=== PATIENT | male | born 1950 | race Caucasian/White ===

== ENCOUNTER 2024-03-26 12:52 | Outpatient (AMB) | payer OTHER, SELFPAY ==
--- NOTE | 2024-03-26 13:00 | HO.SPINEOV ---
Vital Signs 03/26/24 13:04 Height 5 ft 8 in Weight 175 lb BMI 26.6 Intake Visit Reasons: recurrent lumbar radiculopathy/hx spinal stenosis Intake Note: Mr. Resendez is here today c/o low back ,Hip and leg pain. Special Projects Coordinator Required: No Allergies Penicillins Allergy (Mild, Verified 03/26/24 13:07) Swelling Sulfa (Sulfonamide Antibiotics) Allergy (Mild, Verified 03/26/24 13:07) Unknown bee stings Allergy (Mild, Uncoded 03/26/24 13:07) Swelling Physical Exam Vital Signs: BMI result Body Mass Index 26.6 Assessment & Plan Assessment & Plan (1) Lumbar stenosis: Code(s): M48.061 - Spinal stenosis, lumbar region without neurogenic claudication Category: Medical Plan Mr Resendez is a 73-year-old gentleman who is a previous patient of Dr. Saenz from [facility] and from [facility]. He has had [address] Saenz, the last surgery being T11-12, T10-11 and left L4-5 decompression done in 2019. He has always had excellent results from the surgeries and came to see us about a right leg pain that he has had going on now since June of this year. It started slowly but has steadily gotten worse. It wraps around from his low back to the front of his thigh going down to his knee and extending just medial below the knee into the tibial region. At times it can be manageable and he will not notice it all that much, but at other times it can be unrelenting and affect his quality of life to where he will have to limit activities. He is very active gentleman, and has noticed a decrease ability to put weight on his leg and at times it will feel like his legs going to come out from underneath him when he is doing activities. There is tingling that goes down the front of the side of the knee as well. He has tried gabapentin and ibuprofen but they really were not all that helpful so he stopped them. He has been actively going to physical therapy now for about 6 or more months. These things do seem that keep the symptoms at [place] at times but other times he is not really sure if they are helping much. He had an MRI done in February of this year showing stenosis at L3-4 moderate to severe and came in to see us for an evaluation. He does note that he is getting a little bit of the symptoms on the left as well. PMH: As mentioned he has had 5 previous back surgeries, knee arthroscopy, BPH, depression. Denies any problems with his heart, lung, liver, kidneys, intestines, bleeding disorders, blood clots, cancer. Social hx: He does not smoke, drink or use any recreational drugs Medications: Alfuzosin, tadalafil, bupropion Allergies: Penicillin and sulfa drugs Physical exam: Awake alert oriented no acute distress, he has multiple well-healed incision along his thoracolumbar region and into his lower lumbar region. Strength is full, slightly brisk reflexes in the patella, no clonus. Imaging review: He has lumbar MRI done at [facility] in February of this year showing multilevel degenerative disc disease with severe disc collapse at multiple levels. He has evidence of cord signal change at about the T11-12 area, there are postsurgical changes, no residual compression seen. He has mild to moderate stenosis at L1-2, there might be some subtle lateral recess narrowing at L2-3 on the right but the most pertinent finding is moderate to severe stenosis at L3-4. Impression: 73-year-old gentleman well known to Dr. Saenz from 5 previous surgeries, the last in 2019 where he had a thoracic myelopathy as well as a lumbar radiculopathy in both of these were treated with surgery at the T11-12 and L4-5 levels. He was very successful with the surgery in was in great shape until June this year when he started to notice right anterior thigh pain going to his knee associated with tingling and numbness. He starting to get a little bit of it on the left as well. At times it can be claudicating but at other times it is very manageable. It is getting to the point now though where it starting to have more bad days than good days in his leg will feel like it is going to give out from underneath him when he is doing activities. He knows feeling of nerve pain in his very familiar with the sensation and that is exactly what it feels like. His MRI shows severe stenosis at L3-4 amongst other degenerative changes. Typically this is something Dr. Saenz would treat with a simple decompression, usually a unilateral approach for bilateral decompression, in this instance we would go on the right side as that is his most symptomatic. The patient is very familiar with these surgeries and is interested in moving forward. I told him I would review all the films with Dr. Saenz to establish final plan but that I would go ahead and put him on the books for surgery and if anything changes, I will call him and update him. Pt was given risk and benefits of surgery including but not limited to infection, hematoma , nerve injury,durotomy, weakness,bowel/bladder injury, persistent pain, [] as well as the option to continue with conservative treatment and patient wishes to proceed with surgery. Pt is aware they should stop their motrin, aspirin 7 days prior to surgery. All questions were answered to the best of our ability. If there is anything about this patients medical history that we have overlooked or concerns you have about us proceeding with surgery we would appreciate any input you can offer. Thank you for allowing us to care for your patient. The total time spent with this visit with this patient was 45 minutes reviewing history, physical exam, lumbar imaging review, and implementation of treatment plan or further diagnostic testing Jeremy Saenz MD,PhD [facility] Coding Level of Care Code New Pt Level 4 (74118) Diagnoses Lumbar stenosis M48.061
[2024-03-26 13:04] VITALS: BMI 26.6
== END 2024-03-26 14:11 | disposition home or self-care (01) ==
PROVIDERS: PCP Family Medicine; Visit Provider Physician Assistant
DX: M48.061 Spinal stenosis, lumbar region without neurogenic claudication (principal)
CPT/HCPCS: 99204

== ENCOUNTER 2024-05-31 11:26 | Day surgery (SDC) | payer OTHER, SELFPAY ==
[2024-05-18 10:57] VITALS: BMI 26.9
[2024-05-31] VITALS (10 sets, daily range): BP systolic 127–152; BP diastolic 74–92; PULSE 77–87; RESP 16–20; TEMP 36.2–37.1; O2SAT 92–97; BMI 25.4
--- NOTE | ~2024-05-31 | FL_ITS ---
EXAMINATION: FL GUIDANCE ONLY HISTORY: bilateral l3-4 lumbar decompression COMPARISON: None available. TECHNIQUE: Fluoroscopy time: Less than 1 minute. Cumulative Dose: 4.39 mGy. DAP: 0.918 mGym2 Images: 2. FINDINGS: Fluoroscopic spot films of the lumbar spine in the lateral projection demonstrate probes directed toward the L2-3 and L3-4 intervertebral disc spaces from posterior approaches. FL/FL guidance in OR IMPRESSION: Fluoroscopy during procedure. Please see procedure report for additional information. Electronically signed by: Octaviano Vazquez MD 06/04/2024 08:28 AM EDT
[2024-05-31] MEDS: methocarbamoL 750 MG TABLET PO (11:55)
[2024-05-31] MEDS: Gabapentin 300 MG CAPSULE PO (11:55)
[2024-05-31] MEDS: Lactated Ringers 1,000 ML 100 ML IVCONT (12:07)
[2024-05-31] MEDS: vancomycin HCL 1,000 MG in 0.9 % Sodium Chloride 250 ML 270 MG IV (12:22)
--- NOTE | 2024-05-31 12:26 | P.HPSUR_ITS ---
Pre-Procedural Eval Section A - 24 Hr Update-Section A only Date of Service: 05/31/24 The patient is an INPATIENT: No Section B - Complete if H&P > 30 days Chief Complaint: Spinal stenosis, lumbar region without neurogenic Details of Present Illness: Right lumbar radiculopathy Allergies: Allergies Allergy/AdvReac Type Severity Reaction Status Date / Time bee pollen [bee stings] Allergy Intermediate Swelling/it Verified 05/31/24 12:16 apryl Penicillins Allergy Intermediate Swelling/it Verified 05/31/24 12:16 apryl Sulfa (Sulfonamide Allergy Intermediate Swelling/it Verified 05/31/24 12:16 Antibiotics) apryl Review of Systems Sugical H&P ROS: Negative: Constitution, Cardiovascular, Respiratory, Neurologic al, Psychiatric, Hem-Onc, Allergic/Immunologic, Gastrointestinal, Genitourinary, Musculoskeletal, Integumentary, Endocrine and Eyes/Ears/Nose/Throat Exam Surgical H&P Exam: Normal: HEENT, Normal: Heart, Normal: Lungs, Normal: Extremities, Normal: Abdomen, Normal: Skin and Normal: Neurological (Awake, alert) Plan Diagnosis/Plan: Unchanged I have reviewed the history and physical and performed a pertinent physical examination on my patient. No changes have occurred unless specified. right L2-3 decompression, right-sided approach for bilateral L3-4 decompression. Time Spent With Patient Time: Total time managing care of this patient today __5__ minutes.
--- NOTE | 2024-05-31 12:31 | PC.NURSE ---
dr braswell aware pt took asa and ibuprofen on okay to proceed with surgery
--- NOTE | 2024-05-31 12:41 | P.CONAN_ITS ---
Documented by User: Mari Silva NP 05/30/24 12:47 HPI - Anesthesia Eval Consult details Narrative: 73yo M for Bilateral L3-4 Right approach for Lumbar Decompression PMFSH Active Problems Active Problems: All Active Problems Lumbar stenosis (Acute) Past Medical History Medical History Heartburn Squamous cell skin cancer History of Mohs micrographic surgery for skin cancer Lumbar spinal stenosis Lumbar radiculopathy BPH (benign prostatic hyperplasia) Depression Surgical History Surgical History Hx of cataract extraction H/O colonoscopy Hx of arthroscopic knee surgery History of back surgery Social History Social History Do you presently have visiting nurse or other home services: No Comment: advised of trip hazard Patient Tobacco Use Status: Never used Tobacco Use of substances other than those prescribed or required for medical reasons: No Have you been hit, kicked, punched, or otherwise hurt by someone within the past year? If so, by whom?: No Spiritual Healthcare Practices: none [facility] Practices: [employer] Cultural Healthcare Practices: none Are you DNR?: No Advance Directives Information Provided: Yes (as above noted) Advance Directives on File: No Recently lost weight without trying: No Eating poorly because of decreased appetite: No Nutrition Risks: Surgical patient >75years Poor oral hygiene: No Meds Allergies Allergy/AdvReac Type Severity Reaction Status Date / Time bee pollen [bee stings] Allergy Intermediate Swelling/it Verified 05/31/24 12:16 apryl Penicillins Allergy Intermediate Swelling/it Verified 05/31/24 12:16 apryl Sulfa (Sulfonamide Allergy Intermediate Swelling/it Verified 05/31/24 12:16 Antibiotics) apryl Home Medications ?Medication ?Instructions ?Recorded ?Confirmed ?Last Taken ?Type alfuzosin 10 mg tablet,extended 10 mg PO QAM 05/17/24 05/18/24 Unknown History release 24 hr bupropion HCl 150 mg 24 hr tablet, 150 mg PO QAM 05/17/24 05/18/24 Unknown History extended release epinephrine 0.3 mg/0.3 mL 0.3 mg IM ONCE PRN Anaphylaxis 05/17/24 05/17/24 Unknown History injection, auto-injector hydrocortisone acetate 25 mg 25 mg OR BID 05/17/24 05/17/24 Unknown History rectal suppository lorazepam 0.5 mg tablet 1 mg PO BEDTIME PRN Anxiety 05/17/24 05/17/24 Unknown History metronidazole 0.75 % topical gel 1 appl topical BID 05/17/24 05/17/24 Unknown History tadalafil 5 mg tablet 5 mg PO QAM 05/17/24 05/18/24 Unknown History tamsulosin 0.4 mg capsule 0.8 mg PO DAILY 05/17/24 05/17/24 Unknown History aspirin 81 mg tablet,delayed 81 mg PO DAILY 05/29/24 05/29/24 05/29/24 History release Exam Height,Weight and Vital Signs: Height 5 ft 8 in Weight 80.286 kg Assessment and Plan Assessment Anesthesia Assessment: Chart Reviewed Documented by User: Jenniffer Urrutia DO 05/31/24 12:43 HPI - Anesthesia Eval Consult details Narrative: 73yo M for Bilateral L3-4 Right approach for Lumbar Decompression Patient has been told by anesthesiologists in the past that he has a very narrow throat. [facility] Past Medical History Medical History Heartburn Squamous cell skin cancer History of Mohs micrographic surgery for skin cancer Lumbar spinal stenosis Lumbar radiculopathy BPH (benign prostatic hyperplasia) Depression Family History Family history of problems with anesthesia: No Surgical History Surgical History Hx of cataract extraction H/O colonoscopy Hx of arthroscopic knee surgery History of back surgery History of Problems with Anesthesia: No Social History Social History Do you presently have visiting nurse or other home services: No Comment: advised of trip hazard Patient Tobacco Use Status: Never used Tobacco Use of substances other than those prescribed or required for medical reasons: No Have you been hit, kicked, punched, or otherwise hurt by someone within the past year? If so, by whom?: No Spiritual Healthcare Practices: none [facility] Practices: [employer] Cultural Healthcare Practices: none Are you DNR?: No Advance Directives Information Provided: Yes (as above noted) Advance Directives on File: No Recently lost weight without trying: No Eating poorly because of decreased appetite: No Nutrition Risks: Surgical patient >75years Poor oral hygiene: No Meds Allergies Allergy/AdvReac Type Severity Reaction Status Date / Time bee pollen [bee stings] Allergy Intermediate Swelling/it Verified 05/31/24 12:16 apryl Penicillins Allergy Intermediate Swelling/it Verified 05/31/24 12:16 apryl Sulfa (Sulfonamide Allergy Intermediate Swelling/it Verified 05/31/24 12:16 Antibiotics) apryl Home Medications ?Medication ?Instructions ?Recorded ?Confirmed ?Last Taken ?Type alfuzosin 10 mg tablet,extended 10 mg PO QAM 05/17/24 05/18/24 Unknown History release 24 hr bupropion HCl 150 mg 24 hr tablet, 150 mg PO QAM 05/17/24 05/18/24 Unknown History extended release epinephrine 0.3 mg/0.3 mL 0.3 mg IM ONCE PRN Anaphylaxis 05/17/24 05/17/24 Unknown History injection, auto-injector hydrocortisone acetate 25 mg 25 mg OR BID 05/17/24 05/17/24 Unknown History rectal suppository lorazepam 0.5 mg tablet 1 mg PO BEDTIME PRN Anxiety 05/17/24 05/17/24 Unknown Hi story metronidazole 0.75 % topical gel 1 appl topical BID 05/17/24 05/17/24 Unknown History tadalafil 5 mg tablet 5 mg PO QAM 05/17/24 05/18/24 Unknown History tamsulosin 0.4 mg capsule 0.8 mg PO DAILY 05/17/24 05/17/24 Unknown History aspirin 81 mg tablet,delayed 81 mg PO DAILY 05/29/24 05/29/24 05/29/24 History release Exam Exam Date and Time: 05/31/24 1242 Height,Weight and Vital Signs: Height 5 ft 8 in Weight 80.286 kg Vital Signs Temperature 98.7 F 05/31/24 12:08 Pulse Rate 77 05/31/24 12:08 Respiratory Rate 16 05/31/24 12:08 Blood Pressure 132/82 05/31/24 12:08 Pulse Oximetry 94 05/31/24 12:08 Oxygen Delivery Method Room Air 05/31/24 12:08 Temperature 98.7 F 05/31/24 12:08 Pulse Rate 77 05/31/24 12:08 Respiratory Rate 16 05/31/24 12:08 Blood Pressure 132/82 05/31/24 12:08 Pulse Oximetry 94 05/31/24 12:08 Oxygen Delivery Method Room Air 05/31/24 12:08 Airway Mallampati Class: II TM Dist: >3cm Neck ROM: Full Loose/Missing/Broken Teeth: No (patient denies any loose or broken teeth) Heart: S1S2 Lungs: CTAB Assessment and Plan Assessment Anesthesia Assessment: Anesthesia Plan Discussed and Chart Reviewed Final Anesthetic Review Family History of Problems with Anesthesia: No History of Problems with Anesthesia: No NPO: Yes ASA Class: II Final Preanesthetic Review: No Changes in Pt Med Stat, Meds/Allgs Chart Reviewed, Consent Obtained/Reviewed and Anes Risks/Benef Reviewed Patient Risk: Low Procedure Risk: Low Anesthetic Plan Anesthetic Plan: GA and Agree w/ Assess. and Plan Disposition: Standard PACU
--- NOTE | 2024-05-31 15:39 | W.PM.OPN ---
Operative Note Operative Note Date of Service: 05/31/24 Narrative: Preoperative Diagnosis: L2-3 and L3-4 spinal stenosis/lateral recess stenosis/neural foraminal stenosis Operation: Right L2-3 dana Laminotomy, bilateral L3-4 laminotomy, partial facetectomy and foraminotomy with use of microscope Consent Informed Consent was obtained for this operation. I have explained the nature, purpose and benefits of the operation. I have discussed the risks and benefit of the operation including possible complications or adverse events with patient/family. Alternative(s) were discussed with the patient with their relative benefits and risks as well as the consequences of not accepting the operation were included in obtaining consent. Surgeon: ELAINA ALICIA MD, PHD Procedure Assisted By: Adrian Melendez Description of Procedure This patient is suffering from neurogenic claudication. MRI shows severe spinal stenosis L3-4 and moderate right L2-3 lateral recess stenosis. Based on his clinical symptoms I offered decompression of those levels The procedure and complications were explained. The patient was consented. The patient was brought to the operating room and endotracheally intubated. The patient was turned in prone position on the Mark frame. Prep and drape was done followed by timeout. The Physician hotel administrative assistant provided access. A mid lumbar incision was made followed by release of the paravertebral muscle on the right side to expose the L2-L4 laminae and facet joints. An intraoperative x-ray was obtained to confirm the correct level. The microscope was brought in. I took over the procedure. The high-speed drill was used to do a right L2-3 laminotomy until flavum ligament was reached. A #2 Kerrison was used to expand the laminotomy near flush to the pedicles and to include a partial facetectomy. The flavum ligament was opened and resected with a #3 Kerrison to decompress the underlying thecal sac. The flavum ligament was removed to decompress the lateral recess and the exiting L3 nerve root. A long nerve hook could be easily passed along the medial side of the pedicle as a sign of adequate decompression. Then I turned my attention to the L3-4 interspace. A right L3-4 hemilaminotomy was done, including a partial facetectomy. A flavum ligament was opened and resected with a 2. And 3 Kerrison. The L4 nerve root was identified and decompressed in the lateral recess. Then the spinous process was undercut and the patient was turned contralaterally. His flavum ligament was resected contralaterally to decompress the contralateral side, including the nerve root in the lateral recess. The microscope was removed. Hemostasis was done. The physician hotel administrative assistant close the Incision in 2 layers. Steri-Strips were used to approximate incision. An OpSite with Tegaderm was used to cover the incision. All sponge needle counts were correct. Patient was extubated and transported in stable is to recovery room. Anesthesia: General Estimated Blood Loss (ml): 30 Complications: None Duration of Surgery: 70 Minutes Postoperative Plan: Discharge to home
--- NOTE | 2024-05-31 15:43 | P.DS_ITS ---
DS: Providers Provider Date of Service: 05/31/24 Date of discharge: 05/31/24 Primary care physician: Unknown Physician DS: Summary Time Attestation Discharge Coordination Time (in mins): 13 Quality: Safe Use of Opioids Does Pt have an Active Cancer Diagnosis on the Problem List?: No Quality: Stroke Does the patient have a stroke diagnosis?: No Physical Exam Vital Signs: Vital Signs: Last Vital Signs Temp 98.7 F 05/31/24 12:08 Pulse 77 05/31/24 12:08 Resp 16 05/31/24 12:08 BP 132/82 05/31/24 12:08 Pulse Ox 94 05/31/24 12:08 O2 Del Method Room Air 05/31/24 12:08 BMI result Body Mass Index 25.4 Discharge Plan Discharge Patient Disposition: Home, Self-Care Referrals: Physician,Unknown J [Primary Care Provider] - 1 Week Discharge Medications: New oxycodone 5 mg tablet 5 mg PO Q6H PRN (Reason: pain) Qty: 30 0RF Rx Instructions: Partial Fill upon patient request. Continued hydrocortisone acetate 25 mg suppository 25 mg KS BID lorazepam 0.5 mg tablet 1 mg PO BEDTIME PRN (Reason: Anxiety) tamsulosin 0.4 mg capsule 0.8 mg PO DAILY epinephrine 0.3 mg/0.3 mL auto-injector 0.3 mg IM ONCE PRN (Reason: Anaphylaxis) metronidazole 0.75 % gel 1 appl topical BID bupropion HCl 150 mg tablet extended release 24 hr 150 mg PO QAM alfuzosin 10 mg tablet extended release 24 hr 10 mg PO QAM tadalafil 5 mg tablet 5 mg PO QAM Held aspirin 81 mg Tablet,Delayed Release (Dr/Ec) 81 mg PO DAILY Hold Instructions: Resume on 06/04/24. Discharge Orders: Discharge Order (Routine); Ordered 05/31/24 Ordered By: Adrain Leigh Diet: Advance to usual diet Activity on Discharge: As tolerated Activity Restrictions/Additional Instructions: After your spinal surgery we ask you to observe the following restri ctions/guidelines: Activity: It is normal to feel some discomfort as you increase your activity, but that will improve with time. We ask you avoid heavy lifting or acitivities that cause pain. As a general rule, 8lbs is a safe limit for lifting right after surgery. Walk as much as you feel comfortable but not to exhaustion. You will feel extra tired the first few days after surgery. Stay well hydrated. It is OK to walk up and down stairs You may return to driving when you are off narcotics (such as vicodin, oxycodone, dilaudid, etc), and you are back to normal functional capacity. If you have any concerns please check with office before driving. Return to work is specific to each patient and each surgery, so please speak with your doctor/PA at first follow up. Please bring paperwork such as FMLA at that time if you need it filled out. Medications: Please hold your aspirin for 3 days after surgery. We recommend you take 1,000mg Tylenol every 8 hours for the first few weeks after surgery, if you do not have any liver issues and can tolerate this medication. Do not exceed 4,000mg daily. We will give you a short supply of narcotics after surgery (usually one weeks worth). If you need more please call the office but do not use more than prescribed. You will need to give our office 48 hours notice if you need narcotics refilled and we do not fill narcotics on weekends or evenings. If you are on a narcotic, it is a good idea to take a stool softener such as colace or senna to avoid constipation If you take blood thinner such as aspirin, Plavix, Coumadin, Effient, Eliquis etc for conditions such as Afib, DVT, Pulmonary embolus, coronary disease, stents etc please speak with your surgeon about specific details as to when you can resume these medications. You can resume NSAIDs on post op day 1 (eg: Motrin, Naproxen, etc). Follow up: Please call the office, , after surgery to arrange a 3 week follow up for wound check. Wound Care: You may remove your dressing on the first day after surgery. ?You may ?leave open to air. Please do not remove the steri strips underneath. they will fall off on their own in one week. IT IS NORMAL FOR THE WOUND TO OOZE OR BE BLOODY FOR A FEW DAYS AFTER SURGERY. ?IF THIS HAPPENS JUST PLACE NEW DRESSING OVER IT TO AVOID STAINING CLOTHES. You may shower on post op day # 1 We ask that you do not let the water soak the wound. If it does get wet, just towel dry lightly. Please do not scrub your incision or place any type of chemical/ointment on the wound. No tub baths, pools or jacuzzis for one month. If you have any leaking or redness from your wound, or fevers, please call the office. Print Language: Latvian
[2024-05-31] MEDS: Haloperidol Lactate 5 MG/ML VIAL IVPUSH (16:05)
== END 2024-05-31 17:50 | disposition home or self-care (01) ==
PROVIDERS: Visit Provider Neurological Surgery
PROC: (CPT 63047; principal; 2024-05-31 14:00)
DX: M48.061 Spinal stenosis, lumbar region without neurogenic claudication (principal); Z79.899 Other long term (current) drug therapy; R20.0 Anesthesia of skin; R20.2 Paresthesia of skin; N40.0 Benign prostatic hyperplasia without lower urinary tract symptoms; F32.A Depression, unspecified; Z98.890 Other specified postprocedural states; Z88.0 Allergy status to penicillin; Z88.2 Allergy status to sulfonamides; M51.16 Intervertebral disc disorders with radiculopathy, lumbar region
CPT/HCPCS: 63047; 63048; J0131; J1100; J1630; J2003; J2405; J2704; J3010; J3370

== ENCOUNTER → 2024-05-31 11:26 | Outpatient (BNV) | payer OTHER, SELFPAY | PROVIDERS: Visit Provider Neurological Surgery | DX: M48.062 Spinal stenosis, lumbar region with neurogenic claudication (principal) | CPT/HCPCS: 63047; 63048; 99499 ==

== ENCOUNTER 2024-06-21 11:18 | Outpatient (AMB) | payer OTHER, SELFPAY ==
--- NOTE | 2024-06-21 11:27 | HO.SPINEOV ---
Intake Visit Reasons: 1st post op Intake Note: Mr. Resendez is here today for his 1st post op. 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 Gino is a pleasant 73 year old male who underwent lumbar decompression by Dr. Saenz on 05/31/24. To recap he was initially evaluated in clinic for R leg pain. He reports having a fairly difficult postoperative course where he was in quite a bit of pain, including shooting pains down his right lower extremity. Thankfully this has subsided in severity. He still has some residual pains in his right lower extremity, but states it is much better than it was prior to surgery. He asked several questions regarding the postoperative healing course, all of which I answered to the best of my ability. He was able to complete the regular activities of daily living around his home, and is completing stairs without much issue. He is no longer taking the oxycodone medication No new neurological deficits. The patient ambulates well and rises from a seated position without difficulty. His posterior incision site is closed, and scabbed over. He does still have quite a bit of swelling around the actual incision itself, but is nontender to touch, and nonerythematous. There is no drainage. I would like Gino to follow up with us again in 6 weeks to evaluate him at his 2nd postop visit. Adrian Saenz MD,PhD [facility] Coding Level of Care Code Global (46315) Diagnoses Status post lumbar spine surgery for decompression of spinal cord Z98.890
== END 2024-06-21 11:37 | disposition home or self-care (01) ==
LOC: HO.HNS 11:18
PROVIDERS: PCP Family Medicine; Visit Provider Physician Assistant
DX: Z98.890 Other specified postprocedural states (principal)
CPT/HCPCS: 99024

== ENCOUNTER 2024-08-03 13:34 | Outpatient (AMB) | payer OTHER, SELFPAY ==
--- OUTSIDE RECORDS SUMMARY | 2024-08-03 13:38 | XMS_ITS | Data Portability ---
Author Organization [place] - [facility], Allergy Address [address] [place] [address] Care Team Providers Care Dispatcher [place] Name Role Phone PASCUAL FRY Referring Provider [phone] JULIO CESAR CHRISTINE Primary Care Provider [phone] Assessment No assessment recorded. Plan of Treatment Reminders Order Date Submit Date Provider Last Modified By Organization Details Last Modified Time Details Appointments None record ed. Lab None record ed. Referral None record ed. Procedures None record ed. Surgeries None record ed. Imaging None record ed. Medication Orders None record ed. Patient TargetsNo targets recorded. Patient InstructionsNo instructions recorded. Reason for Referral None Reported. Results Created Date Observation Date Name Description Value Unit Range Abnormal Flag Note LastModifiedBy Organization Detail LastModifiedTime 07/07/19 25 audio gram No observ ation record ed. BARCODE Not Available 2024 16:00:54 Result Notes None recorded. Problems Name Problem SNOMED Code Status Onset Date Resolution Date Notes Provider Name and Address Organization Details Recorded Time Sensorine ural hearing loss of bilateral ears 405907055 Active 2018 Sensorine ural hearing loss, bilateral ; Note: Date Diagnosed : 06/09/2018 12:03 PM (H90.3) Not Available [facility] 4 02:17:24 Dysphonia 67162537 Active 2018 Other voice and resonance disorders ; Note: Date Diagnosed : 06/09/2018 10:58 AM (R49.8) Not Available [facility] 4 02:17:45 Finding of resonance of voice 338836406 Active 2018 Other voice and resonance disorders ; Note: Date Diagnosed : 06/09/2018 10:58 AM (R49.8) Not Available [facility] 4 02:17:45 Otalgia of left ear 2189250226 Active 2020 Otalgia, left ear; Note: Date Diagnosed : 10/28/2020 11:19 AM (H92.02) Not Available [facility] 4 02:17:59 Otorrhagi a of left ear 57316780523 14512 Active 2024 MADELIN PICKARD MD [address] [place] [address], [facility] [place], [address] , [place] - [facility] 5 19:10:54 Problem Notes None recorded. Procedures Surgical History None recorded. Imaging Results Imaging Date Name Status LastModified by Organiz ation Details LastModified Time 07/06/2024 audiogram completed BARCODE Information no t available 07/06/2024 16:00:54 Procedure Notes None recorded. Medical Equipment None Reported. Allergies Allergen ID Allergen Name Allergen Category Reaction Reaction Severity Criticality Documentation Date Start Date Code Code System Note Provider Name and Address Organization Details Recorded Time 303360 Substance with sulfonami de structure and antibacte rial mechanism of action (substanc e) medicatio n Not available Not available Not available 07/06/2024 41154 8003 SNOMED Flor caballero [place] - [facility] 5 14:30:08 47667 honey bee venom environme nt other Not available Not available 08/09/2023 99768 7 RxNorm React ion: unkno wn, unspe cifie d;; Not Available [facility] 4 00:50:03 67915 penicilli n V potassium medicatio n other Not available Not available 08/09/2023 10671 5 RxNorm React ion: unkno wn, unspe cifie d;; Not Available [facility] 4 00:50:40 Medications Name Sig Start Date Stop Date Status Note LastModified by Organization Details LastModified Time bupropion HCl SR 150 mg tablet,12 hr sustained -release 07/06 completed Medicati on ID: [id number] D uration Value: 30 Brand Name: bupropio n HCl Send Method: E-Prescr ibed Sub s Allowed: subs OK Medic ationGen ericName : bupropio n HCl Not Available Not Available Not Available ofloxacin 0.3 % ear drops PLACE 5 DROPS INTO THE LEFT EAR 2 TIMES A DAY FOR 7 DAYS. 07/06 completed Not Available Not Available Not Available lorazepam 0.5 mg tablet TAKE 2 TABLETS BY MOUTH EVERY DAY active Not Available Not Available No t Available tamsulosi n 0.4 mg capsule TAKE 2 CAPSULES BY MOUTH EVERY DAY active Not Available Not Available No t Available doxycycli ne monohydra te 100 mg capsule TAKE 1 CAPSULE BY MOUTH 2 TIMES A DAY FOR 10 DAYS. TAKE A PROBIOTI C 2 HOURS AFTER EACH DOSE 07/06 completed Not Available Not Available Not Available diclofena c sodium 50 mg tablet,de layed release TAKE 1 TABLET BY MOUTH TWICE A DAY 07/06 completed Not Available Not Available Not Available gabapenti n 100 mg capsule TAKE 1 CAPSULE BY MOUTH THREE TIMES A DAY 07/06 completed Not Available Not Available Not Available epinephri ne 0.3 mg/0.3 mL injection , auto-inje ctor INJECT 0.3 ML (ONE PEN) INTO THE MUSCLE ONCE NEEDED FOR ANAPHYLA XIS. active Not Available Not Available No t Available metronida zole 0.75 % topical gel APPLY TO FACE TWICE A DAY FOR ROSACEA active Not Available Not Available No t Available oxycodone 5 mg tablet TAKE 1 TABLET BY MOUTH EVERY 6 HOURS NEEDED FOR PAIN 07/06 completed Not Available Not Available Not Available bupropion HCl XL 300 mg 24 hr tablet, extended release Take 1 tablet every day by oral route. active Not Available Not Available No t Available bupropion HCl XL 150 mg 24 hr tablet, extended release TAKE 1 TABLET BY MOUTH EVERY DAY 07/06 completed Not Available Not Available Not Available alfuzosin ER 10 mg tablet,ex tended release 24 hr TAKE 1 TABLET BY MOUTH EVERY DAY 07/06 completed Not Available Not Available Not Available tadalafil 5 mg tablet TAKE 1 TABLET BY MOUTH EVERY DAY active Not Available Not Available No t Available Vitals Date Recorded Body height Body mass index (BMI) Body weight Provider Name and Address Organization Details Last Updated DateTime 07/06/2024 157.48 cm 32 kg/m2 00699.66 g Flor Cedillo [facility] 07/06/2024 14:25:29 Social History None recorded. Functional Status None recorded. Mental Status None recorded. Family History Nothing Reported. Medical History Condition Response Anxiety Y Past Encounters Encounter ID Performer Location Encounter Start Date Encounter Closed Date Diagnosis/Indication Diagnosis SNOMED-CT Code Diagnosis ICD10 Code Diagnosis Note [id number] MADELIN PICKARD MD [facility] on [address] [place] [address] 07/06/2024 14:07:46 07/06/2024 15:38:42 Sensorineural hearing loss of bilateral ears [id number] H90.3 73-year-ol d male presents today for evaluation after having a ear infection with perforatio n just over a month ago.On exam today there is some dried blood in the left canal which is not obscuring visualizat ion of the TM which is intact. We did perform updated audiometri c testing which shows sensorineu ral hearing loss bilaterall y. This does show some progressio n since 2019 though the pattern is the same with some asymmetry with the left ear being a little worse.He could proceed with hearing aid eval if motivated. Follow-up if pain does not resolve. Otorrhagia of left ear [id number] 635581 H92.22 Health Concerns Section Related Observation LastModified by Organization Detai ls LastModified Time None Recorded Concern Status LastModified by Organization Details LastModified Time None Recorded Advance Directives Directive None Recorded Payers Insurance Date Sequence Insurance Name Policy Number Policy Schwartz Covered Member ID Schwartz Member ID Guarantor Name 07/06/[address] [place] [address] [id number] Yoandy Resendez [id number] Yoandy Resendez Notes Date Note Type Note Provider Name and Address Organization Details Recorded Time 07/06/2024 text/html 73 yo M presents today for evaluation of his ears after ear infection started end of left ear bleedingback surgery May 31 Now still some painHard to tell for hearingNo current drainage MADELIN PICKARD MD [address] [place] [address], [place], [address], [facility] - [facility] 07/09/2024 19:11:42
--- NOTE | 2024-08-03 13:41 | A.SPINEOV_ITS ---
Intake Visit Reasons: 2nd post op Intake Note: Mr. Resendez is here today for his 2nd post op. 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 He has been doing great. He does occasionally get intermittent leg pain but overall he is very happy had the surgery. His wound is healed up beautifully. He has no restrictions. At this point we will see him back on an as-needed basis. Jeremy Saenz MD, PhD [facility] Coding Level of Care Code Global (62422) Diagnoses Lumbar stenosis M48.061
== END 2024-08-03 13:56 | disposition home or self-care (01) ==
LOC: HO.HNS 13:35
PROVIDERS: PCP Family Medicine; Visit Provider Physician Assistant
DX: M48.061 Spinal stenosis, lumbar region without neurogenic claudication (principal)
CPT/HCPCS: 99024

== ENCOUNTER → 2024-08-03 13:34 | Outpatient (BNVA) | payer OTHER, SELFPAY | PROVIDERS: PCP Family Medicine; Visit Provider Physician Assistant ==